=== PATIENT | male | born 1975 | race Caucasian/White ===

== ENCOUNTER 2018-11-24 10:57 | Emergency (ER) | payer OTHER ==
--- OUTSIDE RECORDS SUMMARY | 2018-11-24 10:59 | XMS REPORT ---
:1975 [facility] Address [address] [place] [address] [address] [place] [address] Care Team Providers Name Role Phone Unavailable Unavailable Unavailable Problems This patient has no known problems. Allergies, Adverse Reactions, Alerts This patient has no known allergies or adverse reactions. Medications This patient has no known medications.
--- NOTE | 2018-11-24 11:54 | ER ---
Nurse's Notes [facility] Name: Ajay Colin Age: 43 yrs Sex: Male : 1975 Arrival Date: 11/24/2018 Time: 10:57 Bed Waiting Private MD: Diagnosis: Presentation: 11/24 11:16 Presenting complaint: Patient states: "I HAVE THIS VEIN POPPED OUT ON MY NECK AND bp BEHIND MY EAR. I PUSHED ON IT AND BUSTED IT.". Transition of care: patient was not received from another setting of care. Onset of symptoms is unknown. Risk Assessment: Do you want to hurt yourself or someone else? Patient reports no desire to harm self or others. Initial Sepsis Screen: Does the patient meet any 2 criteria? No. Patient's initial sepsis screen is negative. Does the patient have a suspected source of infection? No. Patient's initial sepsis screen is negative. Care prior to arrival: None. 11:16 Method Of Arrival: Ambulatory bp 11:16 Acuity: KIESHA 3 bp Historical: - Allergies: 11:18 No Known Allergies; bp - Home Meds: 11:18 Seroquel Oral [Active]; Trazodone Oral [Active]; bp - PMHx: 11:18 PSYCHIATRIC DISEASE; bp - Immunization history:: Adult Immunizations unknown. - Social history:: Smoking status: unknown. - Ebola Screening: : No symptoms or risks identified at this time. Assessment: 11:52 General: PT REFUSING TO ENTER TREATMENT AREA, LWBS. bp Vital Signs: 11:18 BP 127 / 78; Pulse 87; Resp 20; Temp 98; Pulse Ox 96% ; Weight 99.79 kg; Height 6 ft. bp (182.88 cm); 11:18 Body Mass Index 29.84 (99.79 kg, 182.88 cm) bp ED Course: 10:57 Patient arrived in ED. as 11:17 Triage completed. bp 11:19 Arm band placed on. bp Administered Medications: No medications were administered Outcome: 11:53 Patient left the ED. bp Signatures: Tara Awan Brian, RN RN bp
== END 2018-11-24 11:53 | disposition left against medical advice (07) ==
LOC: ER 10:57
DX: Z53.21 Procedure and treatment not carried out due to patient leaving prior to being seen by health care provider (principal)
CPT/HCPCS: 99281

== ENCOUNTER 2019-04-02 12:29 | Emergency (ER) | payer MEDICAID ==
--- OUTSIDE RECORDS SUMMARY | 2019-04-02 12:31 | XMS REPORT ---
:1975 [facility] Address [address] [place] [address] [address]. Ramon [address] [place] [address] Care Team Providers Name Role Phone Unavailable Unavailable Unavailable Problems This patient has no known problems. Allergies, Adverse Reactions, Alerts This patient has no known allergies or adverse reactions. Medications This patient has no known medications.
--- OUTSIDE RECORDS SUMMARY | 2019-04-02 12:32 | XMS REPORT | Summary of Care ---
:1975 Author Organization [facility] Address [address] [place] [address] Care Team Providers Name Role Phone Doris Gold MD Primary Care Provider Reason for Visit Reason Comments Refill Request Encounter Details Date Type Department Care Team Description 01/20/2019 Refill [facility] Family Medicine Doris Gold MD Refill Request - [address] [place] [address] [place] [phone] Allergies No Known Allergiesdocumented as of this encounter (statuses as of 01/21/2019) Medications Medication Sig Dispensed Refills Start Date End Date Status prazosin 2 mg capsule Take 2 mg by 0 Active mouth every 12 (twelve) hours. traZODONE 100 mg Take 100 mg 0 Active tablet by mouth at bedtime. 1 tabs q hs paroxetine 40 mg Take 40 mg by 0 Active tablet mouth daily. montelukast 10 mg Take 1 tablet 30 tablet 5 06/17/2018 Active tabletIndications: by mouth Allergic sinusitis every evening. hydrOXYzine 25 mg TAKE 1 TABLET 2 10/05/2018 Active tablet BY MOUTH THREE TIMES DAILY lamoTRIgine 100 mg TAKE 2 2 11/24/2018 Active tablet TABLETS BY MOUTH EVERY DAY amLODIPine 5 mg Take 1 tablet 30 tablet 5 12/01/2018 Active tabletIndications: by mouth Essential hypertension daily. pantoprazole 40 mg EC Take 1 tablet 30 tablet 5 01/21/2019 Active tabletIndications: by mouth Gastroesophageal daily. reflux disease without esophagitis pantoprazole 40 mg EC Take 1 tablet 30 tablet 5 04/01/2018 Discontinued tablet by mouth 9 daily. documented as of this encounter (statuses as of 01/21/2019) Active Problems Problem Noted Date Methamphetamine use 10/21/2018 Mass on back 07/22/2018 Staph aureus infection 07/25/2017 B12 deficiency 12/27/2016 Paresthesias/numbness 12/24/2016 Peripheral polyneuropathy 12/24/2016 Bilateral foot pain 12/24/2016 Bipolar disorder 12/02/2016 Anxiety disorder 12/02/2016 GERD (gastroesophageal reflux disease) 12/02/2016 COPD (chronic obstructive pulmonary disease) 12/02/2016 Degenerative disc disease, cervical 12/02/2016 DDD (degenerative disc disease), lumbar 12/02/2016 Cervical disc herniation 12/02/2016 Spinal stenosis, cervical region 12/02/2016 Low HDL (under 40) 12/02/2016 Fatigue 12/02/2016 Obesity (BMI 30-39.9) 06/03/2016 Arthritis of foot Overview: bilateral MTP jts Allergic rhinosinusitis documented as of this encounter (statuses as of 01/21/2019) Resolved Problems Problem Noted Date Resolved Date Chronic hepatitis C 12/02/2016 12/02/2016 documented as of this encounter (statuses as of 01/21/2019) Immunizations Name Administration Dates Next Due Pneumococcal Polysaccharide, PPSV23 (PNEUMOVAX) 12/02/2016 Td 04/28/2015 documented as of this encounter Social History Tobacco Use Types Packs/Day Years Used Date Former Smoker Cigarettes 1 Quit: 03/23/2017 Smokeless Tobacco: Never Used Comments: uses e-cigarrette Alcohol Use Drinks/Week oz/Week Comments No Sex Assigned at Date Recorded Not on file Job Start Date Occupation Industry Not on file Not on file Not on file Travel History Travel Start Travel End No recent travel history available. documented as of this encounter Last Filed Vital Signs Not on filedocumented in this encounter Plan of Treatment Health Maintenance Due Date Last Done Comments DTaP,Tdap,and Td Vaccines (1 - Tdap) 04/29/2015 04/28/2015 INFLUENZA VACCINE (#1) 2019 PNEUMOCOCCAL 0-64 YEARS COMBINED SERIES Completed 12/02/2016 documented as of this encounter Results Not on filedocumented in this encounter Visit Diagnoses Diagnosis Gastroesophageal reflux disease without esophagitis - Primary Esophageal reflux documented in this encounter Insurance Payer Benefit Plan / Subscriber ID Effective Phone Address Type Group Dates [facility] [id number] 2017- Medicare Adv HEALTHCARE - HEALTHCARE ent HMO MANAGED DUAL COMPLETE MEDICARE HMO ALY LU xxxxxxxxx 2016- [address] Medicaid HEALTHCARE [place]CARE [place] [id number] MANAGED MEDICAID [place], [place] documented as of this encounter
--- OUTSIDE RECORDS SUMMARY | 2019-04-02 12:32 | XMS REPORT | Summary of Care ---
:1975 Author Organization [facility] Address [address] [place] [address] Care Team Providers Name Role Phone Doris Gold MD Primary Care Provider Reason for Visit Reason Comments Sinus Problem Chills Encounter Details Date Type Department Care Team Description 12/21/2018 Office Visit [facility] Family Lety Mayo, RATER ASSOCIATE Foreign body of left ear, initial encounter (Primary Dx); Medicine - [address] Essential hypertension; [address] [place] [address] [address] Acute recurrent frontal sinusitis [place], [place] [phone] [place], [place] [phone] Allergies No Known Allergiesdocumented as of this encounter (statuses as of 12/21/2018) Medications Medication Sig Dispensed Refills Start Date End Date Status prazosin 2 mg capsule Take 2 mg by 0 Active mouth every 12 (twelve) hours. traZODONE 100 mg tablet Take 100 mg by 0 Active mouth at bedtime. 1 tabs q hs paroxetine 40 mg tablet Take 40 mg by 0 Active mouth daily. pantoprazole 40 mg EC Take 1 tablet by 30 tablet 5 04/01/2018 Active tablet mouth daily. montelukast 10 mg Take 1 tablet by 30 tablet 5 06/17/2018 Active tabletIndications: mouth every Allergic sinusitis evening. hydrOXYzine 25 mg TAKE 1 TABLET BY 2 10/05/2018 Active tablet MOUTH THREE TIMES DAILY lamoTRIgine 100 mg TAKE 2 TABLETS BY 2 11/24/2018 Active tablet MOUTH EVERY DAY amLODIPine 5 mg Take 1 tablet by 30 tablet 5 12/01/2018 Active tabletIndications: mouth daily. Essential hypertension documented as of this encounter (statuses as of 12/21/2018) Active Problems Problem Noted Date Methamphetamine use [...] as of this encounter (statuses as of 12/21/2018) Resolved Problems Problem Noted Date Resolved Date Chronic hepatitis C 12/02/2016 12/02/2016 documented as of this encounter (statuses as of 12/21/2018) Immunizations Name Administration Dates Next Due Pneumococcal [...] of this encounter Last Filed Vital Signs Vital Sign Reading Time Taken Comments Blood Pressure 145/89 12/21/2018 10:31 AM CDT Pulse 86 12/21/2018 10:31 AM CDT Temperature - - Respiratory Rate 18 12/21/2018 10:31 AM CDT Oxygen Saturation - - Inhaled Oxygen Concentration - - Weight 93 kg (205 lb) 12/21/2018 10:31 AM CDT Height - - Body Mass Index 27.8 10/26/2018 9:05 AM CDT documented in this encounter Progress Notes Lety Mayo FNP - 12/21/2018 10:20 AM CDT Cc: Chief Complaint Patient presents with Sinus Problem Chills Ajay Colin is a 43 year old male. Patient is here for sinus issues, he has a hx of allergic rhinitis and sinusitis , he is supposed to be on singulair but is not taking it. Today, his mom who usually accompanies patient to exam room is not here, patient appears disheveled , unable to keep still, has intermittent generalized body shakiness. He has a hx of illicit drug use, when asked if he has taken anything besides his prescribed medications, he relied no. His blood pressures again today remain elevated as they were last visit. Duringlast visit, mom stated patient was not taking his b/p medications- today when asked, patient states he will start taking it. Sinus Problem Pain details: Location: Frontal Quality: Dull Severity: Mild Timing: Constant Progression: Worsening Chronicity: Recurrent Context: allergies Context: not recent URI Relieved by: Nothing Worsened by: Nothing Ineffective treatments: None tried Associated symptoms: chills, fatigue, rhinorrhea, sneezing and vertigo Associated symptoms: no congestion, no cough, no ear pain, no fever, no headaches, no hoarse voice, no mouth breathing, no nausea, no shortness of breath, no snoring, no sore throat, no swollen glands,no tooth pain, no vomiting and no wheezing Allergies Ajay has No Known Allergies. Medications Outpatient Medications Prior to Visit Medication Sig Dispense Refill amLODIPine 5 mg tablet Take 1 tablet by mouth daily. 30 tablet 5 hydrOXYzine 25 mg tablet TAKE 1 TABLET BY MOUTH THREE TIMES DAILY 2 lamoTRIgine 100 mg tablet TAKE 2 TABLETS BY MOUTH EVERY DAY 2 montelukast 10 mg tablet Take 1 tablet by mouth every evening. 30 tablet 5 pantoprazole 40 mg EC tablet Take 1 tablet by mouth daily. 30 tablet 5 paroxetine 40 mg tablet Take 40 mg by mouth daily. prazosin 2 mg capsule Take 2 mg by mouth every 12 (twelve) hours. traZODONE 100 mg tablet Take 100 mg by mouth at bedtime. 1 tabs q hs No facility-administered medications prior to visit. Histories Past Medical History: Diagnosis Date Allergic rhinosinusitis Anxiety disorder 12/02/2016 Arthritis of foot bilateral MTP jts B12 deficiency 12/27/2016 Bipolar disorder 12/02/2016 Cervical disc herniation 12/02/2016 Chronic hepatitis C 12/02/2016 COPD (chronic obstructive pulmonary disease) 12/02/2016 DDD (degenerative disc disease), lumbar 12/02/2016 Degenerative disc disease, cervical 12/02/2016 Esophageal stricture GERD (gastroesophageal reflux disease) 12/02/2016 Low HDL (under 40) 12/02/2016 Mental and behavioral problem Methamphetamine use 10/21/2018 Obesity (BMI 30-39.9) 06/03/2016 PTSD (post-traumatic stress disorder) Spinal stenosis, cervical region 12/02/2016 Staph aureus infection 07/25/2017 Past Surgical History: Procedure Laterality Date ESOPHAGOGASTRODUODENOSCOPY Social History Socioeconomic History Marital status: Single Spouse name: Not on file Number of children: Not on file Years of education: Not on file Highest education level: Not on file Occupational History Not on file Social Needs Financial resource strain: Not on file Food insecurity: Worry: Not on file Inability: Not on file Transportation needs: Medical: Not on file Non-medical: Not on file Tobacco Use Smoking status: Former Smoker Packs/day: 1.00 Types: Cigarettes Last attempt to quit: 03/23/2017 Years since quittin.7 Smokeless tobacco: Never Used Tobacco comment: uses e-cigarrette Substance and Sexual Activity Alcohol use: No Drug use: Yes Types: Methamphetamines Comment: reports he ate meth this morning 07/30/2018 Sexual activity: Not Currently Lifestyle Physical activity: Days per week: Not on file Minutes per session: Not on file Stress: Not on file Relationships Social connections: Talks on phone: Not on file Gets together: Not on file Attends adventist service: Not on file Active member of club or organization: Not on file Attends meetings of clubs or organizations: Not on file Relationship status: Not on file Intimate partner violence: Fear of current or ex partner: Not on file Emotionally abused: Not on file Physically abused: Not on file Forced sexual activity: Not on file Other Topics Concern Not on file Social History Narrative Not on file Family History Problem Relation Age of Onset Coronary Heart Disease Mother Hyperthyroidism Mother Hypercholesterolemia Mother Brain Cancer Father Skin Cancer Father No Significant Medical Problems Sister No Significant Medical Problems Brother Review of Systems Constitutional: Positive for chills and fatigue. Negative for fever. HENT: Positive for rhinorrhea and sneezing. Negative for congestion, ear pain, hoarse voice and sorethroat. Respiratory: Negative for snoring, cough, shortness of breath and wheezing. Gastrointestinal: Negative for nausea and vomiting. Neurological: Positive for vertigo. Negative for headaches. Vital Signs BP (!) 145/89 (BP Location: Left arm, Patient Position: Sitting, BP CUFF SIZE: Adult Large) | Pulse86 | Resp 18 | Wt 205 lb (93 kg) | BMI 27.80 kg/m Physical Exam Constitutional: Disheveled, intermittent shakiness HENT: Head: Normocephalic. Right Ear: Hearing, tympanic membrane, external ear and ear canal normal. Left Ear: Hearing and external ear normal. No drainage, swelling or tenderness. A foreign body is present. No middle ear effusion. No decreased hearing is noted. Nose: Rhinorrhea present. No mucosal edema. Right sinus exhibits no maxillary sinus tenderness and no frontal sinus tenderness. Left sinus exhibits no maxillary sinus tenderness and no frontal sinus tenderness. Mouth/Throat: Uvula is midline, oropharynx is clear and moist and mucous membranes are normal. No oropharyngeal exudate. No tonsillar exudate. Eyes: Conjunctivae and EOM are normal. Cardiovascular: Normal rate, regular rhythm, normal heart sounds and intact distal pulses. Pulmonary/Chest: Effort normal and breath sounds normal. No respiratory distress. He exhibits no tenderness. Abdominal: Soft. Bowel sounds are normal. He exhibits no distension. There is no tenderness. Lymphadenopathy: Head (right side): No submental and no submandibular adenopathy present. Head (left side): No submental and no submandibular adenopathy present. He has no cervical adenopathy. Neurological: He is alert. He displays tremor (generalized). Baseline psychosocial/psychiatric issues, hx Bipolar, with illicit drug use Skin: Capillary refill takes less than 2 seconds. He is diaphoretic. There is erythema (scabs). Scabs on skin addressed last visit- patient picks his skin Nursing note and vitals reviewed. Assessment/Plan- sent to ER 1. Due exam findings (foreign body in left ear, elevated blood pressures), his history (illicit druguse, and mental issues) and physical presentation (tremors , shakiness). The ER is called, hands off communication given to Vincent in the ER , for further eval and tx: Drug screen, Foreign body extraction from the left ear, elevated blood pressures to r/o other etiology.... 2. HTN: Compliance with treatment encouraged 3. Sinusitis: Most likely allergic: Continue singulair, may add claritin OTC. RTC with any new problems or concerns. This visit did not involve counseling and coordination that comprised more than 50% of the visit time.Electronically signed by Lety Mayo FNP at 2018 12:04 PM CDTdocumented in this encounter Plan of Treatment Health Maintenance Due Date Last Done Comments DTaP,Tdap,and Td Vaccines (1 - Tdap) 04/29/2015 04/28/2015 INFLUENZA VACCINE 01/17/2019 PNEUMOCOCCAL 0-64 YEARS COMBINED SERIES Completed 12/02/2016 documented as of this encounter Results Not on filedocumented in this encounter Visit Diagnoses Diagnosis Foreign body of left ear, initial encounter - Primary Essential hypertension Unspecified essential hypertension Acute recurrent frontal sinusitis Acute frontal sinusitis documented in this encounter Insurance Payer Benefit Plan / Subscriber ID Effective Phone Address Type Group Dates [facility] [id number] 2017-Pres Medicare [facility] HEALTHCARE - HEALTHCARE ent HMO MANAGED DUAL COMPLETE MEDICARE HMO ALY LU xxxxxxxxx 2016-Pres [address] Medicaid HEALTHCARE - HEALTHCARE [place] [id number] MANAGED MEDICAID [place], [place] documented as of this encounter"
--- OUTSIDE RECORDS SUMMARY | 2019-04-02 12:32 | XMS REPORT | Summary of Care ---
:1975 Author Organization [facility] Address [address] [place] [address] Care Team Providers Name Role Phone Doris Gold MD Primary Care Provider Reason for Visit Reason Comments Hypertension Auth/Cert Status Reason Specialty Diagnoses / Referred By Referred To Procedures Contact Contact [facility] [address] [place] [address] [place] [address] Encounter Details Date Type Department Care Team Description 12/21/2018 Emergency [facility] Amy Horan EMNP [address] [place] [address] [address] [facility] [id number] [place] [address] [place], [place] [id number] Allergies No Known Allergiesdocumented as of this [...] Sign Reading Time Taken Comments Blood Pressure 167/96 12/21/2018 11:14 AM CDT Pulse 86 12/21/2018 11:14 AM CDT Temperature 36.7 C (98.1 F) 12/21/2018 11:14 AM CDT Respiratory Rate 18 12/21/2018 11:14 AM CDT Oxygen Saturation 97% 12/21/2018 11:14 AM CDT Inhaled Oxygen Concentration - - Weight 95.3 kg (210 lb) 12/21/2018 11:14 AM CDT Height 182.9 cm (6') 12/21/2018 11:14 AM CDT Body Mass Index 28.48 12/21/2018 11:14 AM CDT documented in this encounter Plan of Treatment Health Maintenance Due Date Last Done Comments DTaP,Tdap,and Td Vaccines (1 - Tdap) 04/29/2015 04/28/2015 INFLUENZA VACCINE 01/17/2019 PNEUMOCOCCAL 0-64 YEARS COMBINED SERIES Completed 12/02/2016 documented as of this encounter Procedures Procedure Name Priority Date/Time Associated Diagnosis Comments NOTICE OF PRIVACY Routine 12/21/2018 11:06 AM CDT PRACTICES CONSENT/REFUSAL FOR Routine 12/21/2018 11:05 AM CDT DIAGNOSIS AND TREATMENT documented in this encounter Results Not on filedocumented in this encounter Insurance Payer Benefit Plan / Subscriber ID Effective Phone Address Type Group Dates [facility] [id number] 2017-Pres Medicare [facility] HEALTHCARE - HEALTHCARE ent HMO MANAGED DUAL COMPLETE MEDICARE HMO ALY LU xxxxxxxxx 2016-Pres [address] Medicaid HEALTHCARE - [place]ALTHCARE [place] [id number] MANAGED MEDICAID [place], [place] documented as of this encounter
--- OUTSIDE RECORDS SUMMARY | 2019-04-02 12:32 | XMS REPORT | Summary of Care ---
:1975 Author Organization [facility] Address [address] [place] [address] Care Team Providers Name Role Phone Doris Gold MD Primary Care Provider Reason for Visit Reason Comments Sinus Problem Chills Encounter Details Date Type Department Care Team Description 12/21/2018 Office Visit [facility] Family Lety Mayo, CLINICAL NURSE OCCUPATIONAL MEDICINE Foreign body of left ear, initial encounter (Primary Dx); Medicine - [address] Essential hypertension; [address] [place] [address] [address] Acute recurrent frontal sinusitis [place], [place] [id number] [place], [place] [phone] Allergies No Known Allergiesdocumented as of [...] file Gets together: Not on file Attends yazdanism service: Not on file Active member of [...] ID Effective Phone Address Type Group Dates [facility] [id number] 2017-Pres Medicare [facility] HEALTHCARE - HEALTHCARE ent HMO MANAGED DUAL COMPLETE MEDICARE HMO ALY LU xxxxxxxxx 2016-Pres [address] Medicaid HEALTHCARE - HEALTHCARE [place] [id number] MANAGED MEDICAID [place], [place] documented as of this encounter"
--- OUTSIDE RECORDS SUMMARY | 2019-04-02 12:32 | XMS REPORT | Summary of Care ---
:1975 Author Organization [facility] Address [address] [place] [address] Care Team Providers Name Role Phone Doris Gold MD Primary Care Provider Reason for Visit Reason Comments ELEVATED BLOOD PRESSURE Encounter Details Date Type Department Care Team Description 01/18/2019 Nurse Triage [facility] Kathie King, ELEVATED BLOOD PRESSURE [address] [facility] [place] [phone] Allergies No Known Allergiesdocumented as of this encounter (statuses as of 01/18/2019) Medications Medication Sig Dispensed Refills Start Date [...] as of this encounter (statuses as of 01/18/2019) Active Problems Problem Noted Date Methamphetamine use [...] as of this encounter (statuses as of 01/18/2019) Resolved Problems Problem Noted Date Resolved Date Chronic hepatitis C 12/02/2016 12/02/2016 documented as of this encounter (statuses as of 01/18/2019) Immunizations Name Administration Dates Next Due Pneumococcal [...] ID Effective Phone Address Type Group Dates [facility] [id number] 2017-Pres Medicare Adv HEALTHCARE - HEALTHCARE ent HMO MANAGED DUAL COMPLETE MEDICARE HMO ALY LU xxxxxxxxx 2016-Pres [address] Medicaid HEALTHCARE - HEALTHCARE [place] [id number] MANAGED MEDICAID [place], [place] documented as of this encounter
--- NOTE | 2019-04-02 14:40 | ER ---
Nurse's Notes [facility] Name: Ajay Colin Age: 44 yrs Sex: Male : 1975 Arrival Date: 04/02/2019 Time: 12:30 Bed 26 Private MD: Diagnosis: Encounter for screening, unspecified Presentation: 04/02 12:40 Presenting complaint: EMS states: Pt took meth this morning and developed tremors, Pt wh was driving when he had the tremors. Pt also C/O nausea and vomiting, EMS described tremors as Dystonic reaction. Pt was given Benadryl 25 and 8 Zofran at the scene. Transition of care: patient was not received from another setting of care. Onset of symptoms. Risk Assessment: Do you want to hurt yourself or someone else? Patient reports no desire to harm self or others. Initial Sepsis Screen: Does the patient meet any 2 criteria? No. Patient's initial sepsis screen is negative. Does the patient have a suspected source of infection? No. Patient's initial sepsis screen is negative. Care prior to arrival: Medication(s) given: zofran 8 mg, Benadryl 25 mg IV initiated. 20 GA, in the right forearm. 12:40 Method Of Arrival: EMS: [facility] 12:40 Acuity: KIESHA 3 Historical: - Allergies: 12:44 No Known Allergies; - PMHx: 12:44 PSYCHIATRIC DISEASE; ADD/ADHD; Bipolar disorder; Social Function Disorder; - PSHx: 12:44 None; - Immunization history:: Adult Immunizations not up to date. - Social history:: Smoking status: Patient/guardian denies using tobacco, Patient uses street drugs, Methamphetamine (Meth). - Ebola Screening: : Patient negative for fever greater than or equal to 101.5 degrees Fahrenheit, and additional compatible Ebola Virus Disease symptoms Patient denies exposure to infectious person. Screenin:42 Abuse screen: Denies threats or abuse. Denies injuries from another. Nutritional screening: No deficits noted. Tuberculosis screening: No symptoms or risk factors identified. Fall Risk None identified. Assessment: 12:45 General: Appears in no apparent distress. Behavior is calm, cooperative, listless. wh Pain: Denies pain. Neuro: Level of Consciousness is awake, alert, obeys commands, Oriented to person, place, time, situation, Appropriate for age Reports Tremors. Neuro:. Cardiovascular: Heart tones S1 S2. Respiratory: Airway is patent Respiratory effort is even, unlabored, Respiratory pattern is regular, symmetrical, Breath sounds are clear bilaterally. GI: Abdomen is flat, non-distended, Reports nausea, vomiting. : No signs and/or symptoms were reported regarding the genitourinary system. EENT: No signs and/or symptoms were reported regarding the EENT system. Derm: Skin is intact, is healthy with good turgor, Skin is pink, warm \T\ dry. normal. Musculoskeletal: Circulation, motion, and sensation intact. 13:45 Reassessment: Patient appears in no apparent distress at this time. No changes from previously documented assessment. Patient and/or family updated on plan of care and expected duration. Pain level reassessed. Patient is alert, oriented x 3, equal unlabored respirations, skin warm/dry/pink. Pt sleeping well no signs of distress noted. 14:48 Reassessment: Patient appears in no apparent distress at this time. No changes from previously documented assessment. Patient and/or family updated on plan of care and expected duration. Pain level reassessed. Patient is alert, oriented x 3, equal unlabored respirations, skin warm/dry/pink. Vital Signs: 12:33 BP 142 / 98; Pulse 95; Resp 24; Temp 98.2(O); Pulse Ox 97% ; lt1 13:33 BP 139 / 91; Pulse 81; Resp 16; Temp 98.1(O); Pulse Ox 98% ; lt1 14:48 BP 138 / 92; Pulse 88; Resp 18; Pulse Ox 97% on R/A; ED Course: 12:30 Patient arrived in ED. ag5 12:37 Melissa Li [facility]-C [facility]. snw 12:37 Garrett Ozuna MD is Attending Physician. snw 12:39 Marilee Page is Primary Nurse. 12:42 Triage completed. wh 12:44 Arm band placed on right wrist. 12:46 Patient has correct armband on for positive identification. Bed in low position. Call light in reach. Side rails up X 1. Pulse ox on. NIBP on. 12:46 Maintain EMS IV. Dressing intact. Good blood return noted. Site clean \T\ dry. Gauge \T\ site: 20g RFA. 14:10 EKG done, by industrial machine system technician. reviewed by Melissa SHIN. 3 14:48 No provider procedures requiring assistance completed. IV discontinued, intact, bleeding controlled, No redness/swelling at site. Administered Medications: No medications were administered Outcome: 14:40 Discharge ordered by . ana 14:49 Discharged to home ambulatory, with family. 14:49 Condition: stable 14:49 Discharge instructions given to patient, Instructed on discharge instructions, follow up and referral plans. medication usage, POC Nausea, HTN and Drug dependence Demonstrated understanding of instructions, follow-up care, medications, POC Prescriptions given X 1. 14:49 Patient left the ED. Signatures: Melissa Li, ALEIDA LEAD BASED PAINT TECHNICIAN-Csnw Marilee Page Starr Tom sm3 Valorie, Farhat ag5 Alena Steiner lt1
--- NOTE | 2019-04-02 14:41 | EDPHYS ---
Physician Documentation [facility] Name: Ajay Colin Age: 44 yrs Sex: Male : 1975 Arrival Date: 04/02/2019 Time: 12:30 Bed 26 Private MD: ED Physician Garrett Ozuna HPI: 04/02 13:49 This 44 yrs old Male presents to ER via EMS with complaints of Nausea. snw 13:49 The patient presents to the emergency department with nausea, that is moderate. Onset: snw The symptoms/episode began/occurred suddenly, s/p using meth, pt was tremulous and nauseated. EMS administered zofran and benadryl with resolution of s/s prior to arrival. Pt resting with eyes closed, vss, no complaints on assessment. Possible causes: Meth. Associated signs and symptoms: Pertinent positives: tremulousness, nausea. Severity of symptoms: At their worst the symptoms were moderate. Severity of symptoms: in the emergency department the symptoms have resolved. It is unknown whether or not the patient has had similar symptoms in the past. It is unknown whether or not the patient has recently seen a physician. Historical: - Allergies: 12:44 No Known Allergies; - PMHx: 12:44 PSYCHIATRIC DISEASE; ADD/ADHD; Bipolar disorder; Social Function Disorder; - PSHx: 12:44 None; - Immunization history:: Adult Immunizations not up to date. - Social history:: Smoking status: Patient/guardian denies using tobacco, Patient uses street drugs, Methamphetamine (Meth). - Ebola Screening: : Patient negative for fever greater than or equal to 101.5 degrees Fahrenheit, and additional compatible Ebola Virus Disease symptoms Patient denies exposure to infectious person. ROS: 13:48 Constitutional: Negative for fever, chills, and weight loss, Eyes: Negative for injury, snw pain, redness, and discharge, ENT: Negative for injury, pain, and discharge, Neck: Negative for injury, pain, and swelling, Cardiovascular: Negative for chest pain, palpitations, and edema, Respiratory: Negative for shortness of breath, cough, wheezing, and pleuritic chest pain, Abdomen/GI: Negative for abdominal pain, vomiting, diarrhea, and constipation, + nausea Back: Negative for injury and pain, : Negative for injury, bleeding, discharge, and swelling, MS/Extremity: Negative for injury and deformity, Skin: Negative for injury, rash, and discoloration, Neuro: Negative for headache, weakness, numbness, tingling, and seizure, Psych: Negative for depression, anxiety, suicide ideation, homicidal ideation, and hallucinations. Exam: 14:36 Constitutional: This is a well developed, well nourished patient who is awake, alert, snw and in no acute distress. Head/Face: Normocephalic, atraumatic. Eyes: Pupils equal round and reactive to light, extra-ocular motions intact. Lids and lashes normal. Conjunctiva and sclera are non-icteric and not injected. Cornea within normal limits. Periorbital areas with no swelling, redness, or edema. ENT: Nares patent. No nasal discharge, no septal abnormalities noted. Tympanic membranes are normal and external auditory canals are clear. Oropharynx with no redness, swelling, or masses, exudates, or evidence of obstruction, uvula midline. Mucous membranes moist. Neck: Trachea midline, no thyromegaly or masses palpated, and no cervical lymphadenopathy. Supple, full range of motion without nuchal rigidity, or vertebral point tenderness. No Meningismus. Chest/axilla: Normal chest wall appearance and motion. Nontender with no deformity. No lesions are appreciated. Respiratory: Lungs have equal breath sounds bilaterally, clear to auscultation and percussion. No rales, rhonchi or wheezes noted. No increased work of breathing, no retractions or nasal flaring. Abdomen/GI: Soft, non-tender, with normal bowel sounds. No distension or tympany. No guarding or rebound. No evidence of tenderness throughout. Back: No spinal tenderness. No costovertebral tenderness. Full range of motion. MS/ Extremity: Pulses equal, no cyanosis. Neurovascular intact. Full, normal range of motion. Neuro: Awake and alert, GCS 15, oriented to person, place, time, and situation. Cranial nerves II-XII grossly intact. Motor strength 5/5 in all extremities. Sensory grossly intact. Cerebellar exam normal. Normal gait. Psych: Awake, alert, with orientation to person, place and time. Behavior, mood, and affect are within normal limits. 14:36 Cardiovascular: Rate: tachycardic, Rhythm: regular, Heart sounds: normal. 14:36 Skin: Appearance: normal except for affected area, excoriated papules to face and extremities. Vital Signs: 12:33 BP 142 / 98; Pulse 95; Resp 24; Temp 98.2(O); Pulse Ox 97% ; lt1 13:33 BP 139 / 91; Pulse 81; Resp 16; Temp 98.1(O); Pulse Ox 98% ; lt1 14:48 BP 138 / 92; Pulse 88; Resp 18; Pulse Ox 97% on R/A; wh MDM: 12:37 Patient medically screened. snw 13:21 Data reviewed: vital signs, nurses notes, EMS record. Data interpreted: Pulse oximetry: snw on room air is 97 %. Interpretation: normal. Response to treatment: sleeping in no distress on exam. 04/02 14:39 Order name: EKG Electrocardiogram [facility] 04/02 13:20 Order name: EKG - Nurse/Tech; Complete Time: 13:53 lt1 Administered Medications: No medications were administered Disposition: 04/02/19 14:40 Discharged to Home. Impression: Encounter for screening, unspecified. - Condition is Stable. - Discharge Instructions: Hypertension, Nausea, Adult, What You Need To Know About Illegal Drug Use and Dependence, Youth. - Prescriptions for Zofran 4 mg Oral Tablet - take 1 tablet by ORAL route every 12 hours As needed; 6 tablet. - Medication Reconciliation Form, Thank You Letter, Antibiotic Education, Prescription Opioid Use form. - Follow up: Private Physician; When: 2 - 3 days; Reason: Recheck today's complaints, Continuance of care, Re-evaluation by your physician. Follow up: Emergency Department; When: As needed; Reason: Worsening of condition. - Problem is new. - Symptoms are resolved. Addendum: 04/06/2019 06:28 Co-signature as Attending Physician, Garrett Ozuna MD I agree with the assessment and k dr plan of care. Signatures: Dispatcher [employer] [facility] Garrett Ozuna MD MD kdr Therrien, Shelly, SERVICE TESTER-C SERVICE TESTER-Csnw Camilo Marilee wh Steiner, Alena lt1 Corrections: (The following items were deleted from the chart) 04/02 14:49 14:40 04/02/2019 14:40 Discharged to Home. Impression: Encounter for screening, wh unspecified. Condition is Stable. Forms are Medication Reconciliation Form, Thank You Letter, Antibiotic Education, Prescription Opioid Use. Follow up: Private Physician; When: 2 - 3 days; Reason: Recheck today's complaints, Continuance of care, Re-evaluation by your physician. Follow up: Emergency Department; When: As needed; Reason: Worsening of condition. Problem is new. Symptoms are resolved. snw
[2019-04-02 15:29] VITALS: TEMP 98.1
[2019-04-02 15:32] VITALS: BP 138/92; O2SAT 97
--- NOTE | 2019-04-02 16:50 | EKG ---
Test Date: 2019-04-02 Test Time: 14:00:25 Marketing Engineer: BESS MEASUREMENT RESULTS: Intervals: Rate: 81 TN: 146 QRSD: 84 QT: 360 QTc: 418 [place]: P: 66 TN: 146 QRS: -6 T: 52 INTERPRETIVE STATEMENTS: Normal sinus rhythm Normal ECG No previous ECG available for comparison Electronically Signed On 04-02-19 16:49:24 MELT SUPERVISOR by Erasto Osborne
== END 2019-04-02 14:49 | disposition home or self-care (01) ==
LOC: ER 12:29
DX: R11.2 Nausea with vomiting, unspecified (principal); Z13.9 Encounter for screening, unspecified
CPT/HCPCS: 93005